=== PATIENT | male | born 1945 | race Caucasian/White ===

== ENCOUNTER 2018-02-04 06:08 | Observation (INO) ==
[2018-02-04] MEDS ORDERED: CeFAZolin Syr 2,000MG/20 ML 2,000 MG/20 ML SYRINGE IVPB ONE (06:26)
[2018-02-04] MEDS ORDERED: Albuterol 2.5 MG/3 ML NEBULIZER IH ONE (06:28)
[2018-02-04] MEDS ORDERED: Albuterol 2.5 MG/3 ML NEBULIZER ONE (06:30)
[2018-02-04] MEDS ORDERED: Ringers Solution, Lactated 1,000 ML IVC SCH (06:30)
[2018-02-04] MEDS ORDERED: Lidocaine -MPF 4% 5 ML AMPUL ONE (07:06)
[2018-02-04] MEDS ORDERED: Dexamethasone 4 MG/ML VIAL ONE (07:06)
[2018-02-04] MEDS ORDERED: Ondansetron 4 MG/2 ML VIAL ONE (07:06)
[2018-02-04] MEDS ORDERED: *HR* Rocuronium Bromide 50 MG/5 ML VIAL ONE ×2 (07:06→09:23)
[2018-02-04] MEDS ORDERED: Lidocaine -MPF 2% 2 ML VIAL ONE (07:06)
[2018-02-04] MEDS ORDERED: *HR* Propofol 200 MG/20 ML VIAL IVP ONE (07:12)
[2018-02-04] MEDS ORDERED: *HR* FentaNYL (PF) 100 MCG/2 ML VIAL ONE ×2 (07:12→08:34)
[2018-02-04] MEDS ORDERED: *HR* Midazolam HCl 2 MG/2 ML VIAL ONE (07:12)
--- NOTE | 2018-02-04 07:12 | History & Physical Report ---
Date of Encounter: 02/04/18 Time of Encounter: 07:12 24 Hour HP Update - Instructions Instructions: If the History and Physical is less than 30 days old and was completed prior to A.M. admission and or procedure and has NOT been updated on calendar day of procedure please complete this update prior to performing procedure. - Update Patient reports changes in Medical Condition: No Changes in examination, assessment, or condition: No Changes in Medication: No Preop tests/diagnostics Reviewed: Yes Surgery Remains Indicated: Yes Consent for Planned Operative Procedure(s) Verified: Yes - Pre-Operative Checklist Preoperative Checklist Indicated: Yes Prophylactic Antibiotic Ordered: Yes Home Medications Include Beta Vicki: Yes Is VTE Prophylaxis Indicated?: Yes
--- NOTE | 2018-02-04 07:14 | Anesthesia Evaluation PreOp ---
Date of Encounter: 02/04/18 Time of Encounter: 07:12 - Past History Planned Operation: Robotic lap prostatectomy with rekha lymph node dissect Cardiac History: [place], HTN, Hyperlipidemia Pulmonary History: Smoker, Pack/yr (25), COPD MARKETING DEVELOPER History: Denies Any Significant HX Other Medical History: Renal (stones) Anesthesia History: No Prior Anesthetic Complications, Past Anesthesia ( prostate bx) Alcohol Use: none Drug use: none Medications and Allergies Aspirin [Lo-Dose Aspirin EC] 81 mg PO DAILY 11/13/17 [History] Atorvastatin [Lipitor] 10 mg PO HS 11/13/17 [History] HYDROcodone/Acet 5/325 mg [[place] 5-325 mg] 1 tab PO Q6H PRN 11/13/17 [History] Lisinopril [Zestril] 40 mg PO DAILY 11/13/17 [History] Metoprolol Succinate [Toprol Xl] 50 mg PO DAILY 11/13/17 [History] Pentoxifylline 400 mg PO TID 11/13/17 [History] Sulfamethoxazole/Trimeth DS [Bactrim DS] 1 each PO BID #6 tablet 11/13/17 [Rx] Tiotropium [Spiriva] 18 mcg PO DAILY 11/13/17 [History] hydroCHLOROthiazide [Hydrochlorothiazide] 12.5 mg PO DAILY 11/13/17 [History] 3 Allergy/AdvReac Type Severity Reaction Status Date / Time No Known Allergies Allergy Verified 01/21/18 13:46 - Meds/Allergy Pre-op Review Medications Reviewed: Yes Allergies Reviewed: Yes Beta Blockers on Current Med List: Yes If Beta Blockers taken, Date/Time (Last Dose taken): 4am 02/04/18 Anesthesia Results - Labs Laboratory Tests 01/21/18 01/21/18 14:30 14:30 WBC 7.7 Hgb 16.5 Hct 49.6 Plt Count 202 Potassium 4.3 Creatinine 0.92 - Imaging EKG: report reviewed (SINUS RHYTHM Electronically Signed On 11-05-2017 6:09:51 EDT by Davy Coats) Anesthesia Exam O2 Sat Height 1.75 m Height 1.75 m Height 1.75 m Weight 88.451 kg Weight 88.451 kg Weight 88.451 kg O2 Sat by Pulse Oximetry 97 O2 Sat by Pulse Oximetry 97 Vital Signs Temp Pulse Resp BP Pulse Ox 97.9 F 71 18 167/74 97 02/04/18 06:32 02/04/18 06:32 02/04/18 06:32 02/04/18 06:32 02/04/18 06:32 Height: 69" Weight: 195lbs Pain Scale: 0 Pain Scale Used: Numeric (1 - 10) - HEENT Pupil (Motor): Pupils equal, EOMI Mallampati: II Teeth: Edentulous Oral Opening: Greater than 3 - MARKETING DEVELOPER LOC: Oriented MARKETING DEVELOPER Motor: Normal RUE, Normal LUE, Normal RLE, Normal LLE, Normal Face MARKETING DEVELOPER Sensory: Normal: RUE, LUE, RLE, LLE, Face - Cardiac Rhythm: Regular - Pulmonary Breath Sounds: bilateral Clear Respiratory Effort: Symmetrical Anesthesia Assess/Plan ASA Score: 3 (HTN, COPD, smoker, hx of remote [place]) Modified Ralston Scale for Level of Consciousness: Cooperative, oriented, and tranquil Anesthetic Plan: General Monitoring Plan: Standard Monitors Recovery Plan: PACU
[2018-02-04] MEDS ORDERED: Acetaminophen IV 1,000 MG/100 ML INFUS..BTL ONE (07:27)
[2018-02-04] MEDS ORDERED: *HR* Phenylephrine 10 MG/ML VIAL ONE (07:30)
[2018-02-04] MEDS ORDERED: *HR* Morphine 10 MG/ML VIAL ONE (08:49)
[2018-02-04] MEDS ORDERED: Dexamethasone 4 MG/ML VIAL IVP ONE (09:28)
[2018-02-04] MEDS ORDERED: *HR* Labetalol 100 MG/20 ML MDV IVP PRN (09:28)
[2018-02-04] MEDS ORDERED: *HR* Morphine 2 MG/ML SYRINGE IVP PRN (09:28)
[2018-02-04] MEDS ORDERED: *HR* Promethazine 25 MG/ML VIAL IVP PRN (09:28)
[2018-02-04] MEDS ORDERED: Ondansetron 4 MG/2 ML VIAL IVP ONE (09:28)
[2018-02-04] MEDS ORDERED: Neostigmine Methylsulfate 3 MG/3 ML SYRINGE ONE (12:05)
--- NOTE | 2018-02-04 12:48 | Operative Note ---
Date of procedure: 02/04/18 Pre-op diagnosis: Prostate cancer Post-op diagnosis: same Procedure: Robotic-assisted radical prostatectomy with bilateral pelvic lymph node dissection Implants: 19-Austrian Barron drain. 20-Austrian Márquez catheter Complications: None Anesthesia: GETA Surgeon: Jass Oh Was there an assistant mechanic present: Yes Wine Specialist: Jesus Martin Wine Specialist Other: Deepthi Mixon Estimated blood loss (cc): 200 Specimen: Left and right pelvic lymph nodes, prostate Condition: stable Disposition: PACU Procedure in Detail: INDICATIONS FOR PROCEDURE: Mr. Tripp is a 72 year-old male with history of elevated PSA. He was found on prostate needle biopsy to have [place] 3+4 prostate cancer bilaterally. Staging workup was negative for metastatic disease. He is now presenting for robotic assisted prostatectomy with bilateral pelvic lymph node dissection. He was informed of the risks of the procedure including but not limited to bleeding, infection, injury to other structures, need for further procedures, lymphocele, urinary incontinence, urine leak, erectile dysfunction, bladder neck contracture, rectal injury, and the risk of anesthesia. He is willing to proceed. PROCEDURE: After informed consent was obtained, the patient was taken to the operating room, placed supine on the table. He was given IV antibiotics for antibiotic coverage. He had YOLY's and SCD's placed on the lower extremities for DVT prophylaxis. Induction of general anesthesia was performed. The arms were tucked and he was placed in lithotomy position. He was secured to the OR table with padding. A 10mm incision was made in the infraumbilical region.. The Veress needle was introduced. The water drop test passed. Pneumoperitoneum was initiated with low pressures initially. The abomen was insufflated. I then placed a 12mm camera port through this incision using the visual obturator using the 8 mm robotic camera. Once the trocar was in place, the 0 degree camera for the robot was placed in the field and remaining trocars were placed. Robotic ports were placed x 2 on the right side. We placed another robotic port to the left of the umbilicus. We also placed a 12mm port in the left lower quadrant and a 5mm port superior and to the left of the umbilicus. Once all trocars were in place, the robot was docked to the patient and the monopolar scissors were placed on the right robotic arm. The bipolar [place] was in the left robotic arm and the Prograsp in the 4th arm. Some adhesions of the sigmoid colon were taken down sharply with the scissors. We initially retracted the bowel with the 4th arm. The medial umbilical ligaments were cauterized and the bladder was taken down off the anterior abdominal wall using electrocautery. The bladder was dissected down to the endopelvic fascia. Attention was then turned to the left pelvic sidewall. The external iliac vein was identified. Careful dissection then isolated the lymph node packet and the obturator nerve was identified. Weck clips were placed at the superior aspect of the lymph node packet. There was an enlarged node within the packet. I sent this for pathology, frozen section. That was negative. An identical approach was performed on the right side. The node packets were sent separately. The right-sided lymph node packets were palpably normal. The bladder was then grasped with a 4th arm and retracted cephalad. We then swept the periprostatic fat off the prostate as well as the pelvic sidewall. We then incised the endopelvic fascia on both sides and carried the incision up to the prostatic apex, sweeping the levator fibers off of the prostate. The puboprostatic ligaments were carefully incised. We then turned our attention to the bladder neck which was incised with the monopolar cautery until the catheter was visualized at the bladder neck. There was some backbleeding at this time. I was controlled using bipolar cautery. The posterior bladder neck was then opened using the cautery until the space between the prostate and the bladder neck was visualized. There was a median lobe. This was carefully dissected out leaving the bladder neck still of a reasonable caliber. No bladder neck reconstruction was necessary. Dissection continued posteriorly using ultra cautery. Eventually, the vas deferens and seminal vesicals were encountered. The vas deferens were cauterized and divided. We pulled the seminal vesicles up into the field to help retract the prostate in cephalad direction. Denonvillier's fascia was dissected off the prostate posteriorly. There is evidence of perineural invasion bilaterally. I elected to go with a non-nerve sparing approach. I carefully divided the pedicles using multiple Hem-o-paulette clips to clip the larger prostatic pedicle. Bipolar cautery and sharp dissection was utilized to dissect the posterior aspect of the prostate. Attention was then turned to the right side. The pedicles were controlled using Hem-o-paulette clips. The pedicles were taken sharply. Posterior dissection continued and we used bipolar cautery for hemostasis. We then used the 4th arm to place the prostate on stretch in cephalad direction. We then transected the dorsal venous complex. There was a moderate amount of bleeding from the dorsal vein. Once I got to the urethra I elected to oversew the dorsal vein. I then oversewed the dorsal venous complex using an 0 Vicryl suture in a running fashion. I cut across the urethra until the catheter was visualized. The catheter was removed and the posterior urethra was transected. The prostate was then freed. Hemostasis was adequate. The bladder neck was identified and there appeared to be some excess tissue located there. I removed that and sent it as a bladder neck margin. The posterior bladder neck and then obvious fascia was reapproximated using an 0 Vicryl suture. The urethral vesicle anastomosis was then performed with a 3-0 V-Paulette suture in running fashion starting at 6 o'clock position. With two sutures tied together we then ran the right side up about detention. The left side was then run around until the bladder was reanastamosed to the urethra. The final 20 Austrian catheter was placed into the bladder and balloon filled with 15 mL of sterile water. The bladder was irrigated. No leak was identified. A 19 Austrian Barron drain was placed through the trocar down into the pelvis. The trocar was removed and drain sewn in place with a suture. The robot was then undocked from the patient. Using laparoscopic instruments I then moved the string from the Endo Catch bag over to the umbilical port with the assistance of the 8 mm robotic camera. After extending the incision slightly with the electrocautery the EndoCatch bag was then removed from the camera port. The abdominal fascia was then closed in an interrupted fashion with 0 Vicryl suture. All incisions were instilled with 0.25% Marcaine. The remaining trocars were removed under direct vision and all incisions were then closed with 4-0 Monocryl in subcuticular fashion. The patient was then awakened from general anesthesia and brought to the recovery room in good condition. All sponge, needle, and instrument counts were correct.
--- NOTE | 2018-02-04 13:35 | Anesthesia Evaluation Post Op ---
Date of Encounter: 02/04/18 Time of Encounter: 13:34 - Vital Signs Vital Signs: Vital Signs/O2 Sat/Glucose, Most Recent Temp Pulse Resp BP Pulse Ox 97.7 F 82 16 148/73 91 02/04/18 13:17 02/04/18 13:17 02/04/18 13:17 02/04/18 13:17 02/04/18 13:17 - Lungs Lungs: Clear Ascult./Percussion - Airway Airway: Non-obstructed - Cardiovascular Regular Rate - Mental Status Mental Status: Alert & Oriented, Answers Appropriately - Pain Pain Scale: 4 - Nausea Vomiting Nausea Vomiting: Not Present - Hydration Hydration: NPO - Discharge PostOp Status: Transfer Patient to floor
[2018-02-04] MEDS ORDERED: Ondansetron 4 MG/2 ML VIAL IVP PRN (14:22)
[2018-02-04] MEDS ORDERED: Naloxone 0.4 MG/ML INJ IVP PRN (14:22)
[2018-02-04] MEDS ORDERED: Acetaminophen 325 MG TABLET PO PRN (14:22)
[2018-02-04] MEDS ORDERED: Albuterol 2.5 MG/3 ML NEBULIZER IH PRN (14:22)
[2018-02-04] MEDS: *HR* OxyCODONE Immed Rel 5 MG TABLET PO PRN (14:53)
[2018-02-04] MEDS: 0.9 % Sodium Chloride 1,000 ML IVC SCH ×2 (15:00→22:28)
[2018-02-04] MEDS: OXYCODONE Oral CONC 10 MG/0.5 ML ORAL.SYG SL PRN ×2 (15:38→20:58)
[2018-02-04] MEDS: *HR* Heparin 5,000 UNIT/ML VIAL SQ SCH (17:06)
[2018-02-04] MEDS: Tiotropium 18 MCG inhalation IH SCH (19:45)
[2018-02-05] MEDS: OXYCODONE Oral CONC 10 MG/0.5 ML ORAL.SYG SL PRN ×3 (02:42→21:10)
[2018-02-05 05:38] LABS: Hemoglobin 13.5 g/dL (12.9-16.9); Mean Corpuscular HGB Conc 32.9 g/dL (31.6-35.5); Mean Corpuscular Hemoglobin 31.8 pg (28.0-33.3); Mean Corpuscular Volume 96.5 fL (83.0-100.0); Mean Platelet Volume 10.3 fL (9.4-12.4); Platelet Count 166 K/mcL (140-400); Red Blood Count 4.25 M/mcL (4.19-5.50); Red Cell Distribution Width 13.8 % (11.5-14.5)
[2018-02-05 06:14] LABS: BUN/Creatinine Ratio 23 (6-26); Blood Urea Nitrogen 21 mg/dL (8-23); Calcium 8.6 mg/dL (8.6-10.3); Carbon Dioxide 25 mEq/L (23-29); Chloride 108 mEq/L (98-107); Glucose 142 mg/dL (70-105); Osmolality,Calculated 295 (280-300); Potassium 4.4 mEq/L (3.5-5.1); Sodium 140 mEq/L (136-145); eGFR For Non-African Americans > 60 (> 60)
[2018-02-05] MEDS: *HR* Heparin 5,000 UNIT/ML VIAL SQ SCH ×2 (06:20→16:37)
[2018-02-05] MEDS: 0.9 % Sodium Chloride 1,000 ML IVC SCH ×3 (06:21→22:59)
--- NOTE | 2018-02-05 06:44 | Urology Progress Note ---
Date of Encounter: 02/05/18 Time of Encounter: 06:40 - Assessment and Plan (1) Prostate cancer Current Visit: Yes Status: Acute Assessment and plan: Postoperative #1 status post robotic assisted radical prostatectomy. 1. Advanced diet as tolerated. 2. Continue WILMER for now. 3. Ambulate 3 times per day. 4. Heparin subcutaneous for prophylaxis. 5. We will see how he does with his diet and ambulation. If he is doing well this afternoon, we can just be discharged later on today. Otherwise, he may need to be discharged home tomorrow. Progress Note Narrative: Postoperative day #1 status post robotic system radical prostatectomy with bilateral pelvic lymph node dissection. He is doing well today. He is having some abdominal pain. He is tolerating clears. Márquez is draining clear. Objective Initial Vital Signs Temp Pulse Resp BP Pulse Ox 97.9 F 71 18 167/74 97 02/04/18 06:32 02/04/18 06:32 02/04/18 06:32 02/04/18 06:32 02/04/18 06:32 - General physical appearance Present: well developed, well nourished, no distress - Respiratory Present: normal respiratory effort - Abdomen Present: soft (Appropriately tender, mild distention, incisions are clean, dry, and intact. WILMER was some serosanguineous drainage.) - Genitourinary Present: normal penis with no external lesions (Márquez catheter in place with clear urine.) - Labs 02/05/18 05:10 02/05/18 05:10 Diabetes panel 02/05/18 Range/Units 05:10 Sodium 140 (136-145) mEq/L Potassium 4.4 (3.5-5.1) mEq/L Chloride 108 H (98-107) mEq/L Carbon Dioxide 25 (23-29) mEq/L BUN 21 (8-23) mg/dL Creatinine 0.92 (0.70-1.30) mg/dL Glucose 142 H (70-105) mg/dL Calcium 8.6 (8.6-10.3) mg/dL Calcium panel 02/05/18 Range/Units 05:10 Calcium 8.6 (8.6-10.3) mg/dL Pituitary panel 02/05/18 Range/Units 05:10 Sodium 140 (136-145) mEq/L Potassium 4.4 (3.5-5.1) mEq/L Chloride 108 H (98-107) mEq/L Carbon Dioxide 25 (23-29) mEq/L BUN 21 (8-23) mg/dL Creatinine 0.92 (0.70-1.30) mg/dL Glucose 142 H (70-105) mg/dL Calcium 8.6 (8.6-10.3) mg/dL Adrenal panel 02/05/18 Range/Units 05:10 Sodium 140 (136-145) mEq/L Potassium 4.4 (3.5-5.1) mEq/L Chloride 108 H (98-107) mEq/L Carbon Dioxide 25 (23-29) mEq/L BUN 21 (8-23) mg/dL Creatinine 0.92 (0.70-1.30) mg/dL Glucose 142 H (70-105) mg/dL Calcium 8.6 (8.6-10.3) mg/dL - VTE Documentation of Mechanical Device: Intermittent pneumatic compression device Consult Discharge Plan - Plan Referrals: Sallie Oh CNP [Primary Care Provider] - Jass Oh MD [Partnered Physician] -
[2018-02-05] MEDS: Lisinopril 20 MG TABLET PO SCH (09:57)
[2018-02-05] MEDS: hydroCHLOROthiazide 25 MG TABLET PO SCH (09:57)
[2018-02-05] MEDS: Metoprolol XL (24 HR) Succ 50 MG TAB.ER.24H PO SCH (09:57)
[2018-02-05] MEDS: *HR* OxyCODONE Immed Rel 5 MG TABLET PO PRN (14:47)
[2018-02-05] MEDS: Ketorolac 15 MG/ML VIAL IVP PRN ×2 (16:37→22:59)
[2018-02-05] MEDS: Tiotropium 18 MCG inhalation IH SCH (20:06)
[2018-02-06] MEDS: OXYCODONE Oral CONC 10 MG/0.5 ML ORAL.SYG SL PRN (02:20)
[2018-02-06] MEDS: *HR* OxyCODONE Immed Rel 5 MG TABLET PO PRN (04:35)
[2018-02-06] MEDS: *HR* Heparin 5,000 UNIT/ML VIAL SQ SCH (05:57)
[2018-02-06] MEDS: hydroCHLOROthiazide 25 MG TABLET PO SCH (09:30)
[2018-02-06] MEDS: Metoprolol XL (24 HR) Succ 50 MG TAB.ER.24H PO SCH (09:31)
[2018-02-06] MEDS: Lisinopril 20 MG TABLET PO SCH (09:31)
[2018-02-06] MEDS: 0.9 % Sodium Chloride 1,000 ML IVC SCH (09:42)
[2018-02-06] MEDS: Ketorolac 15 MG/ML VIAL IVP PRN (09:43)
[2018-02-06 10:48] VITALS: BP 161/79
--- NOTE | 2018-02-06 10:51 | Discharge Summary ---
Date of Encounter: 02/06/18 Time of Encounter: 10:00 - Discharge Diagnosis (1) Prostate cancer Priority: Primary Status: Acute - Hospital Course Hospital course: Mr. Tripp is a 72 year old male with a history of [place] 3+4 prostate cancer. On February 04, 2018, the patient was taken to the operating room and underwent a Robotic-assisted radical prostatectomy with bilateral pelvic lymph node dissection. There were no complications, the patient tolerated the procedure well, his postoperative course was unremarkable, and he was dismissed in satisfactory condition. I discussed postoperative restrictions and follow up. Patient verbalized understanding. Time spent discussing smoking cessation with patient: 3 to 10 minutes - Time Spent with Patient Total time spent providing and/or coordinating discharge services: Less than 30 minutes Procedures and tests throughout hospitalization: Robotic-assisted radical prostatectomy with bilateral pelvic lymph node dissection - Discharge Medications Prescriptions: Docusate Sodium [Colace] 100 mg PO BID #60 capsule Oxycodone HCl/Acetaminophen [Percocet 5-325 mg Tablet] 1 each PO Q6H 4 Days #16 tablet Home Medications: Aspirin [Lo-Dose Aspirin EC] 81 mg PO DAILY 11/13/17 [History] Atorvastatin [Lipitor] 10 mg PO HS 11/13/17 [History] HYDROcodone/Acet 5/325 mg [[place] 5-325 mg] 1 tab PO Q6H PRN 11/13/17 [History] Lisinopril [Zestril] 40 mg PO DAILY 11/13/17 [History] Metoprolol Succinate [Toprol Xl] 50 mg PO DAILY 11/13/17 [History] Pentoxifylline 400 mg PO TID 11/13/17 [History] Tiotropium [Spiriva] 18 mcg PO HS 11/13/17 [History] hydroCHLOROthiazide [Hydrochlorothiazide] 12.5 mg PO DAILY 11/13/17 [History] Docusate Sodium [Colace] 100 mg PO BID #60 capsule 02/06/18 [Rx] Oxycodone HCl/Acetaminophen [Percocet 5-325 mg Tablet] 1 each PO Q6H 4 Days #16 tablet 02/06/18 [Rx] Allergies/Adverse Reactions: 3 Allergy/AdvReac Type Severity Reaction Status Date / Time No Known Allergies Allergy Verified 02/04/18 07:25 Date of admission: 02/05/18 12:50 Primary care physician: Sallie Oh CNP Consults: 02/05/18 06:44 Consult to Physical Therapy [CONS] Routine Comment: Evaluate, develop and implement POC Reason for Consult: Assist with ambulation Does patient have active BEDREST order?: No Is patient medically & hemodynamically stable?: Yes Patient assessed for mobility or mobilized this visit?: No Discharging clinician: Deepthi Mixon Anticipated date of discharge: 02/06/18 Exam Initial Vital Signs Temp Pulse Resp BP Pulse Ox 97.9 F 71 18 167/74 97 02/04/18 06:32 02/04/18 06:32 02/04/18 06:32 02/04/18 06:32 02/04/18 06:32 - General physical appearance Present: well developed, well nourished, no distress, no pain - Eyes Present: PERRL, normal ocular movement - ENT Present: normal nares, no hearing loss - Neck Present: no masses, trachea midline - Respiratory Present: normal respiratory effort - Cardiovascular Cardiovascular exam IM: RRR - Abdomen Abdomen: Present: soft, non tender - Genitourinary Penis: Present: other (indwelling talavera draining sufficient clear urine ) - Integumentary Present: no rash, no abnormal pigmentation - Neurologic Present: normal coordination. Absent: disoriented, confused - Patient Status Disposition: Home, Self-Care Condition: Good Functional capacity at discharge: independent ambulation Overall status at discharge: patient is progressing back to baseline - Discharge Instructions Follow Up With: Sallie Oh CNP [Primary Care Provider] - Jass Oh MD [Partnered Physician] - Additional Instructions: Call if fever greater than 101 degrees. Okay to shower. No tub baths or swimming. No heavy activity or lifting. Please return to office to see Dr. Oh within 1 week for voiding trial. - Diet and Activity Activity: increase activity as tolerated Diet: advance to your usual diet - VTE Documentation of Mechanical Device: Intermittent pneumatic compression device
== END 2018-02-06 14:10 | disposition home or self-care (01) ==
LOC: SAMDAY 06:08 → 3ANU 06:08
PROVIDERS: ADMIT Urology; ATTEND Urology